=== PATIENT | female | born 1955 | race Caucasian/White ===

== ENCOUNTER → 2016-10-12 | Outpatient (CLI) | payer BC ==
--- NOTE | ~2016-10-12 | PUL ---
PATIENT'S NAME: JULIA GASTELUM [facility] AGE: 61 Y [address] ROOM: [place] [id number] LOCATION: [facility] ADMIT DATE: 10/12/2016 Pulmonary DISCHARGE DATE: FAMILY PHYSICIAN: Rosalina Solis MD ATTENDING PHYSICIAN: Rosalina Solis NAME OF PROCEDURE: Pulmonary Function Test DATE OF PROCEDURE: October 12, 2016 TECH: HEATHER Sullivan REASON FOR EXAM: Shortness of breath PROCEDURES PREFORMED: Spirometry with and without bronchodilator assessment. RESULTS: Pre bronchodilator FVC was 3.36 L, 96% of predicted; post bronchodilator FVC was 3.2 L, 91% of predicted. Pre bronchodilator FEV1 was 2.67 L, 99% of predicted; post bronchodilator FEV1 was 2.6, 62, 98%. FEV1/FVC was 79%. FEF 25-75% was 2.72 L/second, 103% of predicted. Peak flow was 6.73 L/second, 103% of predicted. IMPRESSION: Normal FEV1 and FVC. No evidence of airflow obstruction. No significant bronchodilator response. MD RONNA MARRUFO/rosio /[id number] dtt: 10/13/16 1741 , NANY LEOS dtd: 10/13/16 1109
== END | disposition disaster alternative care site (69) ==
LOC: GRTH 14:52
DX: R06.02 Shortness of breath (principal)

== ENCOUNTER → 2016-10-14 | Outpatient (CLI) | payer BC | LOC: GBCOE 06:58 | DX: Z12.31 Encounter for screening mammogram for malignant neoplasm of breast (principal) | CPT/HCPCS: G0202 ==